=== PATIENT | female | born 1955 | race Caucasian/White ===

== ENCOUNTER 2019-09-21 10:15 | Outpatient (CLI) | payer OTHER ==
[2013-08-29 15:02] VITALS: BP 118/68
--- NOTE | 2019-09-21 11:06 | Diagnostic Imaging Report ---
PATIENT MR#: [id number] PATIENT PATIENT NAME: KT SMILEY DATE OF : 1955 REFERRING PHYSICIAN: Enid Fitch EXAM DATE: 09/21/2019 ACCESSION NUMBER: [id number] EXAM DESCRIPTION: L SPINE 4 VIEWS CLINICAL HISTORY: LOW BACK PAIN AFTER FALL COMPARISON: No relevant comparison is available at the time of interpretation. L-SPINE XRAY, 5 views including flexion - extension: Vertebral bodies: No compression deformities. Multilevel facet arthrosis. Disc spaces: Severe degenerative disc narrowing at L4-5 and L5-S1 with endplate osteophytes. Moderat e degenerative disc narrowing at L1-2 and L2-3. Alignment: Minimal dextrocurvature centered at L2. Straightening of the normal lumbar lordosis. Flexi on extension images demonstrate limited range of motion, without listhesis. Abdomen: Cholecystectomy clips. IMPRESSION: 1. No evidence of acute compression fracture. 2. Multilevel degenerative disc disease, severe at L4-5 and L5-S1. 3. Minimal dextrocurvature with straightening of the normal lordosis, which may indicate paraspinal m uscle spasm. Read by: Dr. Ramon Woodruff Transcribed by: Ramon Woodruff Transcribed Date: 09/21/2019 11:05:53 AM Electronically signed by: Dr. Ramon Woodruff Date signed: 09/21/2019 11:05:53 AM
== END 2019-09-21 10:25 ==
LOC: RAD 10:15
PROVIDERS: ATTEND Family Medicine
DX: M54.41 Lumbago with sciatica, right side (principal)
CPT/HCPCS: 72110